=== PATIENT | male | born 1940 | race Caucasian/White ===

== ENCOUNTER 2017-09-06 09:29 | Emergency (ER) | payer MEDICARE, OTHER ==
[~2017-09-06] VITALS: Ht 175.3 cm; Wt 85.7 kg
[~2017-09-06 09:29] MED LIST: ASPIR 8181 MG PO; FISH OIL 1,001000 M2 PO; FLOMAX0.4 MG PO; LUMIGAN2.5 M1 OP; MOBIC7.5 MG PO; NITROGLYCERIN12 GM SPRAY; OSTERA TABLET1 EAC1 PO; SIMVASTATIN40 MG PO; TRAVATAN Z2.5 ML OPHTHALMIC; VITAMIN C500 MG/15 PO
[2017-09-06] MEDS ORDERED: KLONOPIN0.5 MG PO (09:39)
[2017-09-06] MEDS ORDERED: LASIX 20 MG TAB20 MG PO (09:40)
[2017-09-06] MEDS ORDERED: TOPROL XL25 MG PO (09:40)
[2017-09-06] MEDS ORDERED: TRAZODONE HCL50 MG PO (09:40)
[2017-09-06] MEDS ORDERED: XALATAN2.5 ML OPHTHALMIC (09:42)
[2017-09-06] MEDS ORDERED: LUMIGAN2.5 M1 OPHTHALMIC (09:58)
[2017-09-06] MEDS ORDERED: MAGOX 400400 MG PO (09:58)
[2017-09-06] MEDS ORDERED: LISINOPRIL2.5 MG PO (09:59)
[2017-09-06 10:12] LABS: ABSOLUTE BASOPHILS 0.1 thou/uL (0.0-0.2); ABSOLUTE EOSINOPHILS 0.2 thou/uL (0.0-0.7); ABSOLUTE LYMPHOCYTES 1.9 thou/uL (0.8-5.3); ABSOLUTE MONOCYTES 0.7 thou/uL (0.0-1.2); ABSOLUTE NEUTROPHILS 5.2 thou/uL (1.6-8.1); BASOPHILS 1.1 %; EOSINOPHILS 2.9 %; HEMATOCRIT 45.5 % (42.0-52.0); HEMOGLOBIN 15.1 gm/dL (14.0-18.0); LYMPHOCYTES 23.6 %; MCH 30.2 pg (26.0-34.0); MCHC 33.2 g/dL (28.0-37.0); MCV 91.1 fL (80.0-100.0); MONOCYTES 8.8 %; MPV 8.7 fl. (7.2-11.1); NUCLEATED RBCS 0 /100WBC; PLATELET COUNT* 222 thou/uL (150-400); POLYS 63.6 %; RBC 4.99 mil/uL (4.50-6.00); RDW-CV 13.4 % (10.5-14.5); WBC 8.1 thou/uL (4.0-11.0)
[2017-09-06 10:15] LABS: URINE BILIRUBIN NEGATIVE (Negative); URINE BLOOD NEGATIVE (Negative); URINE CLARITY CLEAR; URINE COLOR YELLOW; URINE GLUCOSE-RANDOM NEGATIVE (Negative); URINE KETONES NEGATIVE (Negative); URINE LEUKOCYTES-REFLEX NEGATIVE (Negative); URINE NITRITE-REFLEX NEGATIVE (Negative); URINE PROTEIN NEGATIVE (Negative); URINE UROBILINOGEN 0.2 E.U./dl (0.2-1.0)
[2017-09-06 10:27] LABS: APTT 27.7 Seconds (25.0-31.3); INR 1.1; PROTIME 10.3 Seconds (9.20-11.50)
[2017-09-06 10:28] LABS: ANION GAP 5 mmol/L (7-16); BUN 28 mg/dL (7-18); CALCIUM 9.2 mg/dL (8.5-10.1); CHLORIDE 104 mmol/L (98-107); CO2 30 mmol/L (21-32); CREATININE 1.2 mg/dL (0.6-1.3); GLUCOSE 99 mg/dL (70-99); POTASSIUM 4.1 mmol/L (3.5-5.1); SODIUM 139 mmol/L (136-145)
[2017-09-06 10:39] LABS: ALBUMIN 3.5 g/dL (3.4-5.0); ALKALINE PHOSPHATASE 76 U/L (46-116); NT-PRO BRAIN NAT PEPTIDE 372 pg/mL (<300); SGOT 34 U/L (15-37); SGPT 25 U/L (30-65); TOTAL BILIRUBIN 0.5 mg/dL (<0.1-1.0); TOTAL PROTEIN 7.1 g/dL (6.4-8.2); TROPONIN-I LEVEL <0.06 ng/mL (<0.06)
[2017-09-06] MEDS ORDERED: MECLIZINE HCL12.5 MG PO (11:38)
[2017-09-06 11:48] VITALS: BP 124/75
--- NOTE | 2017-09-06 15:50 | EKG ---
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
--- NOTE | 2017-09-06 15:53 | EKG ---
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1940 Requested By: Pepe Dobson Order Number: [id number] MD: Filiberto Alegria Measurements Intervals [place] Rate: 79 P: -29 [place]: 164 QRS: -94 QRSD: 164 T: 6 QT: 453 QTc: 520 Interpretive Statements Sinus rhythm Atrial premature complexes in couplets Sinus pause RBBB and LAFB Compared to ECG 04/30/2015 19:15:34 Sinus arrhythmia noted Electronically Signed On 09-06-2017 15:53:11 PRODUCTION SUPPORT ENGINEER by Filiberto Alegria [email or web address] <ELECTRONICALLY SIGNED> By: Filiberto Alegria MD, [facility] 09/06/17 1553 1134 1134 Filiberto Alegria MD, FACC /EPI
== END 2017-09-06 11:49 | disposition home or self-care (01) ==
LOC: M.ERS 09:29
PROVIDERS: Emergency Medicine
DX: I49.1 Atrial premature depolarization (principal); R42 Dizziness and giddiness; H83.09 Labyrinthitis, unspecified ear; E78.00 Pure hypercholesterolemia, unspecified; I25.2 Old myocardial infarction; I10 Essential (primary) hypertension; Z95.5 Presence of coronary angioplasty implant and graft; Z88.0 Allergy status to penicillin

== ENCOUNTER → 2018-12-03 | Outpatient (CLI) | payer MEDICARE, OTHER ==
[~2018-12-03] MED LIST changes: +KLONOPIN0.5 MG PO; +LASIX 20 MG TAB20 MG PO; +LISINOPRIL2.5 MG PO; +LUMIGAN2.5 M1 OPHTHALMIC; +MAGOX 400400 MG PO; +MECLIZINE HCL12.5 MG PO; +TOPROL XL25 MG PO; +TRAZODONE HCL50 MG PO; +XALATAN2.5 ML OPHTHALMIC
--- NOTE | 2018-12-03 13:03 | 2DMMODE ---
[place] [address] 2 D/M-MODE ECHOCARDIOGRAM Name: ILANA BALES Room: [facility]#: [id number] Admission: 12/03/18 Attend Phys: Isak Clancy, Discharge: Date of : 42 Date of Service: 12/03/18 1303 Report #: [id number] THIS REPORT FOR: //name// APPROVED REPORT Study performed: 12/03/2018 10:38:26 EXAM: Comprehensive 2D, Doppler, and color-flow Echocardiogram Patient Location: Out-Patient BSA: 1.92 HR: 73 bpm BP: 120/80 mmHg Other Information Study Quality: Good Indications Atrial Fibrillation Aortic valve replacement 2D Dimensions IVSd: 11.95 (7-11mm) LVOT Diam: 20.58 (18-24mm) LVDd: 64.40 mm PWd: 10.20 (7-11mm) Ascending Ao: 37.16 (22-36mm) LVDs: 43.48 (25-40mm) Aortic Root: 28.31 mm Volumes Left Atrial Volume (Systole) LA ESV Index: 37.30 mL/m2 Aortic Valve AoV Peak Hieu.: 1.78 m/s AO Peak Gr.: 12.74 mmHg LVOT Max P.05 mmHg AO Mean Gr.: 7.07 mmHg LVOT Mean P.10 mmHg LVOT Max V: 0.72 m/s AO V2 VTI: 34.88 cm LVOT Mean V: 0.49 m/s RONAK (VTI): 1.41 cm2 LVOT V1 VTI: 14.84 cm Mitral Valve E/A Ratio: 0.68 MV Decel. Time: 227.91 ms MV E Max Hieu.: 0.45 m/s MV PHT: 66.09 [place] [address] 2 D/M-MODE ECHOCARDIOGRAM Name: ILANA BALES Room: [facility]#: [id number] Admission: 12/03/18 Attend Phys: Isak Clancy, Discharge: Date of : 42 Date of Service: 12/03/18 1303 Report #: [id number] MVA (PHT): 3.33 cm2 TDI E/Lateral E': 6.43 E/Medial E': 6.43 Medial E' Hieu.: 0.07 m/s Lateral E' Hieu.: 0.07 m/s Pulmonary Valve PV Peak Hieu.: 0.88 m/s PV Peak Gr.: 3.08 mmHg Tricuspid Valve RAP Estimate: 5.00 mmHg TR Peak Gr.: 17.17 mmHg RVSP: 22.17 mmHg PA Pressure: 22.17 mmHg Left Ventricle The left ventricle is normal size. Basal inferior wall is severely hypokinetic Paradoxical septal motion consistent with post-operative state. There is normal left ventricular wall thickness. Left ventricular systolic function is mildly decreased. LVEF is 50%. Grade I - abnormal relaxation pattern. Right Ventricle The right ventricle is normal size. The right ventricular systolic function is normal. Atria Left atrium is mildly dilated. The right atrium size is normal. Aortic Valve Bioprosthetic aortic valve is present. No aortic regurgitation is present. There is no aortic valvular stenosis.Mean gradient <10mmHg Mitral Valve The mitral valve is normal in structure. Mild mitral regurgitation. No evidence of mitral valve stenosis. Tricuspid Valve The tricuspid valve is normal in structure. Mild tricuspid regurgitation. Pulmonic Valve The pulmonary valve is normal in structure. There is no pulmonic [place] [address] 2 D/M-MODE ECHOCARDIOGRAM Name: ILANA BALES Room: [facility]#: [id number] Admission: 12/03/18 Attend Phys: Isak Clancy, Discharge: Date of : 42 Date of Service: 12/03/18 1303 Report #: [id number] Great Vessels The aortic root is normal in size. IVC is normal in size and collapses >50% with inspiration. Pericardium There is no pericardial effusion. <Conclusion> LVEF is 50%. Basal inferior wall is severely hypokinetic Paradoxical septal motion consistent with post-operative state. Left atrium is mildly dilated. Bioprosthetic aortic valve is present. There is no aortic valvular stenosis.Mean gradient <10mmHg No aortic regurgitation is present. Grade I - abnormal relaxation pattern. <ELECTRONICALLY SIGNED> By: Isak Clancy MD, FACC 12/03/18 1303 1303 1303 Isak Clancy MD, FACC /INF
--- NOTE | 2018-12-03 16:52 | CARDNUC ---
[place] [address] CARDIAC NUCLEAR IMAGING REPORT Name: ILANA BALES Room: [facility]#: [id number] Admission: 12/03/18 Attend Phys: Isak Clancy, Discharge: Date of : 42 Date of Service: 12/03/18 1652 Report #: [id number] THIS REPORT FOR: //name// APPROVED REPORT Imaging Protocol: Rest Tc-99m/Stress Tc-99m 1 day Study performed: 12/03/2018 07:15:00 Indication: RBBB, Irregular rate/rhythm, PVC's. Patient Location: Out-Patient Stress Tech: [facility] Stress Nurse: Nikki Collins RN Ht: 5 ft 9 in Wt: 193 lbs BSA: 2.03 m2 BMI: 28.49 Medical History Medical History: Angina, Arrhythmia, CAD s/p MA, CAD s/p stent, Fatigue, Former Smoker, HTN, Hyperlipidemia, RBBB, Weakness. Medications: ASA 81 Mg, Lasix, Lisinopril, Metoprolol, Pradaxa, Simvastatin. Allergies: Latex, Penicillin G, Soap. Cardiac Risk Factors: Age, FHX of CAD, FHX of CAD, Hyperlipidemia, Past Smoker, RBBB, Irregular Rate/Rhythm. Previous Cardiac Procedures: Myocardial infarction, PCI. Pretest Chest Pain Characteristics: No chest pain Exercise History: Indeterminate Physical Disabilities: Unstable gait/fall risk. Meds Held (24 hrs): Metoprolol. Resting Data Rest SPECT myocardial perfusion imaging was performed in supine position 30 minutes following the intravenous injection of 12.0 mCi of Tc-99m Sestamibi. Time of rest injection: 07:40 The images were gated to evaluate regional wall motion and calculate left ventricular ejection fraction. Administration Route: IV Administration Site: Right Hand Pharmacologic Stress Pharmacologic stress test was performed by injecting Regadenoson 0.4 mg IV push over 10-15 seconds immediately followed by the intravenous injection of 35.2 mCi of Tc-99[place] [address] CARDIAC NUCLEAR IMAGING REPORT Name: ILANA BALES Room: [facility]#: [id number] Admission: 12/03/18 Attend Phys: Isak Clancy, Discharge: Date of : 42 Date of Service: 12/03/18 1652 Report #: [id number] Time of stress injection: 09:30 Administration Route: IV Administration Site: Right Hand Heart Rate at time of stress injection: 106 bpm. Gated Stress SPECT was performed 40 minutes after stress injection. The images were gated to evaluate regional wall motion and calculate left ventricular ejection fraction. Prone imaging was performed. Stress Test Details Stress Test: Pharmacologic stress testing performed using 0.4 mg of regadenoson per 5 mL given IV over 10 seconds. Reason for pharmacologic stress test: Unstable gait/fall risk.. HR Max Heart Rate (APMHR): 143 bpm Resting HR: 76 bpm Target HR (85% APMHR): 121 bpm Max HR Achieved: 106 bpm % of APMHR: 74 Recovery HR: 92 bpm HR response to stress: Normal HR response to stress BP Resting BP: 145/89 mmHg Max BP: 155/58 mmHg Recovery BP: 123/79 mmHg BP response to stress: Normal blood pressure response to stress. ECG Resting ECG: afib rbbb Stress ECG: afib ST Change: none Arrhythmia: none Recovery ECG: afib rbbb Recovery ST Change: none Recovery Arrhythmia: none Clinical Reason for Termination: Completed protocol Stress Symptoms: None Exercise duration: 0 min 0 sec Exercise capacity: 1.00 METs Nurse Comments 78 year old male presented for sitting Lexiscan r/t irregular HRR, [place] [address] CARDIAC NUCLEAR IMAGING REPORT Name: ILANA BALES Room: [facility]#: [id number] Admission: 12/03/18 Attend Phys: Isak Clancy, Discharge: Date of : 42 Date of Service: 12/03/18 1652 Report #: [id number] RBBB, PVC's with HX of MA and PCI. Patient unstable to walk on treadmill, fall risk. Patient tolerated sitting Lexiscan well. Recovery unremarkable with PO caffeine. Patient escorted by staff to Nuclear Medicine for images. Patient stable with no complaints at that time. Stress ECG Conclusion nondiagnostic Study Quality Study: Good Artifact: Mild Diaphragmatic artifact Lung Uptake: Normal Study Data At rest, the left ventricular ejection fraction was 44%.. Post stress, the left ventricular ejection was 45%.. SSS: 10 SRS: 3 SDS: 7 TID = 1.05. Perfusion Review of SPECT images at rest reveal a small to moderate sized, but severe intensity basolateral defect . Normal perfusion is seen in all other segments. When imaged at stress this defect is noted to be fixed.Compatible with a small to medium sized lateral MA at the base. No other defects are seen.No ischemia is seen. Images were reviewed using [employer]. Wall Motion lateral hypokinesis Nuclear Conclusion ECG Findings: non-diagnostic Clinical Findings: negative for ischemia Nuclear Findings: negative for ischemia Exercise Capacity: not assessed Left Ventricular Function: abnormal Risk Study: low to moderate This study reveals evidence of a prior, small to medium sized lateral MA without ishcemia. Mild LV dysfunction is present.No [place] [address] CARDIAC NUCLEAR IMAGING REPORT Name: LORIANNE MARIEILANA BRIONES JEANNETTE [id number] Admission: 12/03/18 Attend Phys: Isak Clancy, Discharge: Date of : 42 Date of Service: 12/03/18 1652 Report #: [id number] <Conclusion> nondiagnostic <ELECTRONICALLY SIGNED> By: Isak Clancy MD, FACC 12/03/181651 51 51 Isak Clancy MD, FACC /INF
== END ==
LOC: M.CRD → M.NUC 11-20 08:00 → M.CRD 11-26 08:00 → M.NUC 11-26 13:00 → M.CRD 11-26 13:00 → M.NUC 07:09
DX: I08.1 Rheumatic disorders of both mitral and tricuspid valves (principal); I25.10 Atherosclerotic heart disease of native coronary artery without angina pectoris; Z91.040 Latex allergy status; Z88.0 Allergy status to penicillin; Z91.09 Other allergy status, other than to drugs and biological substances; Z95.2 Presence of prosthetic heart valve

== ENCOUNTER → 2018-12-30 | Outpatient (CLI) | payer MEDICARE, OTHER ==
--- NOTE | 2018-12-30 11:46 | EKG ---
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[employer] : 1940 Requested By: Gabriel Vera Order Number: [id number] Nanci MD: Fred Sol Measurements Intervals [place] Rate: 71 P: -20 MS: 148 QRS: 261 QRSD: 158 T: -1 QT: 433 QTc: 471 Interpretive Statements atrial fibrillation RBBB and LAFB Compared to ECG 09/06/2017 11:34:36 Sinus rhythm no longer noted Electronically Signed On 12-30-2018 11:46:27 CDT by Fred Sol [email or web address] <ELECTRONICALLY SIGNED> By: Fred Sol MD, [facility] 12/30/18 1146 08 08 Fred Sol MD, [facility] /EPI
== END ==
LOC: M.CRD 08:22
DX: I48.91 Unspecified atrial fibrillation (principal); I45.10 Unspecified right bundle-branch block